=== PATIENT | female | born 1935 | race African-American/Black ===

== ENCOUNTER 2017-01-06 08:33 | Emergency (ER) | payer OTHER, MEDICAID ==
[~2017-01-06] VITALS: Ht 165.1 cm; Wt 90.0 kg
[~2017-01-06 08:33] MED LIST: ALD50 PO; ALLO100T PO; ASPI325T2 PO; FERR-63 PO; FOLI-43 PO; FURO-151 PO; HYDR-2510 PO; LEVO500T15 PO; LOSA50TA20 PO; NEO/5DRO7 OP; NIFE90TA43 PO; NITR0.4T SL; OMEP40CA34 PO; PRO AIR; TERA10CA43 PO
[2017-01-06 10:00] LABS: CLARITY URINE CLEAR (CLEAR); COLOR URINE YELLOW (YELLOW); GLUCOSE URINE NEGATIVE (NEGATIVE); KETONES URINE NEGATIVE (NEGATIVE); LEUKOCYTE ESTERASE URINE 1+ (NEGATIVE); NITRITE URINE NEGATIVE (NEGATIVE); OCCULT BLOOD URINE NEGATIVE (NEGATIVE); PROTEIN URINE NEGATIVE (NEGATIVE); SPECIFIC GRAVITY URINE 1.012 (1.005-1.030); UROBILINOGEN URINE 0.2 E.U./dL (0.2-1.0)
[2017-01-06 10:05] LABS: BASOPHILS % 0.3 % (0.0-2.0); EOSINOPHILS % 0.3 % (0.0-5.0); HEMATOCRIT. 27.9 % (36.0-48.0); HEMOGLOBIN. 9.1 g/dL (12.0-16.0); MEAN CORPUSCULAR HEMOGLOBIN 28.8 pg (28.0-32.0); MEAN CORPUSCULAR HGB CONC 32.7 g/dL (31.0-37.0); MEAN CORPUSCULAR VOLUME 88.1 fL (81.0-99.0); MONOCYTES % 6.2 % (2.0-8.0); NEUTROPHILS % 83.2 % (40.0-76.0); PLATELET 246 x1000/uL (130-400); RED BLOOD CELL COUNT 3.16 mill/uL (4.2-5.4); RED CELL DISTRIBUTION WIDTH 15.2 % (11.6-14.6); WHITE BLOOD COUNT 12.9 x1000/uL (4.5-11.0)
[2017-01-06 10:15] LABS: PROTHROMBIN TIME 10.7 sec
[2017-01-06 10:18] LABS: ALANINE AMINOTRANSFERASE 16 IU/L (13-61); ANION GAP 13; CALCIUM 8.9 mg/dL (8.5-10.1); CARBON DIOXIDE 25 mEq/L (21-32); CHLORIDE 106 mEq/L (98-107); INDEX HEMOLYSI 1 (1-3); INDEX ICTERIC 1 (1-4); INDEX LIPEMIC 1 (1-3); LIPASE 224 IU/L (73-393); UREA NITROGEN BLOOD 55 mg/dL (7-21); eGFR 31 mL/min (>60)
[2017-01-06 10:22] LABS: NT PRO B-TYPE NATRIURETIC PEP 183 pg/mL (5-125)
[2017-01-06 10:41] LABS: BACTERIA URINE 1+; RBC URINE 0-2 /hpf (0-2); SQUAMOUS EPITHELIAL CELL URINE 1+ /lpf (RARE/1+)
[2017-01-06 10:43] LABS: TRICHOMONAS URINE RARE
[2017-01-06] MEDS ORDERED: SODIUM CHLORIDE 0.9% 1,000 ML IV ONE (11:01)
[2017-01-06 14:38] VITALS: BP 148/64
== END 2017-01-06 14:41 | disposition home or self-care (01) ==
LOC: ER 08:38
DX: N39.0 Urinary tract infection, site not specified (principal); A59.9 Trichomoniasis, unspecified; M79.605 Pain in left leg; M79.604 Pain in right leg; M19.90 Unspecified osteoarthritis, unspecified site; J44.9 Chronic obstructive pulmonary disease, unspecified; I10 Essential (primary) hypertension; M10.9 Gout, unspecified; Z79.82 Long term (current) use of aspirin; Z79.899 Other long term (current) drug therapy; Z90.710 Acquired absence of both cervix and uterus
CPT/HCPCS: 36415; 73630; 80053; 81001; 83690; 83880; 85025; 85610; 93970; 96360; 99285; J7030

== ENCOUNTER 2017-10-04 21:32 | Emergency (ER) | payer OTHER, MEDICAID ==
[~2017-10-04] VITALS: Ht 154.9 cm; Wt 113.0 kg
[~2017-10-04 21:32] MED LIST changes: +ASPI-986 PO; -ASPI325T2 PO; -LEVO500T15 PO; +LEVO500T2 PO; +TERA10CA4 PO; -TERA10CA43 PO
[2017-10-04] MEDS ORDERED: ACYCLOVIR 400 MG TABLET PO ONE (23:15)
[2017-10-04] MEDS ORDERED: DIPHENHYDRAMINE 50MG CAPSULE PO ONE (23:15)
[2017-10-05 01:18] VITALS: BP 161/69
== END 2017-10-05 01:17 | disposition home or self-care (01) ==
LOC: ER 22:31
DX: B02.9 Zoster without complications (principal); I11.9 Hypertensive heart disease without heart failure; J44.9 Chronic obstructive pulmonary disease, unspecified; Z79.82 Long term (current) use of aspirin
CPT/HCPCS: 99283; Q0163

== ENCOUNTER 2019-07-08 22:37 | Emergency (ER) | payer OTHER, MEDICAID ==
[~2019-07-08] VITALS: Ht 162.6 cm; Wt 114.0 kg
[~2019-07-08 22:37] MED LIST changes: +BUME2TAB7 PO; -LOSA50TA20 PO; +LOSA50TA41 PO; +MULT1TAB63 PO; -PRO AIR
[2019-07-09] MEDS ORDERED: MINERAL OIL ENEMA 133ML PR ONE (01:00)
[2019-07-09 01:09] LABS: BASOPHILS % 0.6 % (0.0-2.0); EOSINOPHILS % 2.4 % (0.0-5.0); HEMATOCRIT. 27.2 % (36.0-48.0); HEMOGLOBIN. 8.8 g/dL (12.0-16.0); LYMPHOCYTES % 18.2 % (20.0-50.0); MEAN CORPUSCULAR HEMOGLOBIN 27.4 pg (28.0-32.0); MEAN CORPUSCULAR VOLUME 84.9 fL (81.0-99.0); MEAN PLATELET VOLUME 7.9 fl (7.4-10.4); MONOCYTES % 6.4 % (2.0-8.0); NEUTROPHILS % 72.4 % (40.0-76.0); PLATELET 272 x1000/uL (130-400); RED BLOOD CELL COUNT 3.21 mill/uL (4.2-5.4); RED CELL DISTRIBUTION WIDTH 19.5 % (11.6-14.6)
[2019-07-09 01:10] LABS: CHLORIDE 112 mEq/L (98-107)
[2019-07-09 05:00] VITALS: BP 146/88
== END 2019-07-09 05:00 | disposition home or self-care (01) ==
LOC: ER 22:37
DX: S80.922A Unspecified superficial injury of left lower leg, initial encounter (principal); K59.00 Constipation, unspecified; L92.9 Granulomatous disorder of the skin and subcutaneous tissue, unspecified; J44.9 Chronic obstructive pulmonary disease, unspecified; I11.0 Hypertensive heart disease with heart failure; I50.9 Heart failure, unspecified; Z79.82 Long term (current) use of aspirin; Z79.899 Other long term (current) drug therapy; X58.XXXA Exposure to other specified factors, initial encounter; Y93.89 Activity, other specified; Y92.89 Other specified places as the place of occurrence of the external cause; Y99.8 Other external cause status
CPT/HCPCS: 36415; 99283

== ENCOUNTER 2020-08-24 18:47 | Emergency (ER) | payer MEDICAID, OTHER ==
[~2020-08-24] VITALS: Ht 167.6 cm; Wt 100.0 kg
[~2020-08-24 18:47] MED LIST changes: +ALBU18HF2 IH; +ALBU90AE INH; -ASPI-986 PO; -BUME2TAB7 PO; +DOCU-138 MT; -FERR-63 PO; +FERR325T23 MT; +FLUT9.9S BOTHNSTRLS; -FOLI-43 PO; -FURO-151 PO; -HYDR-2510 PO; -LOSA50TA41 PO; -MULT1TAB63 PO; -NITR0.4T SL; +OMEP40CA12 MT; +OMEP40CA12 PO; -OMEP40CA34 PO; +P20 PO; +POLY17PO3 MT; +TOPUD PO
[2020-08-24 18:52] VITALS: BP 171/60
== END 2020-08-24 20:39 | disposition home or self-care (01) ==
LOC: ER 18:47
DX: R04.0 Epistaxis (principal); I11.0 Hypertensive heart disease with heart failure; I50.9 Heart failure, unspecified; J44.9 Chronic obstructive pulmonary disease, unspecified; Z79.899 Other long term (current) drug therapy; Z79.51 Long term (current) use of inhaled steroids
CPT/HCPCS: 99283

== ENCOUNTER 2020-12-10 00:12 | Emergency (ER) | payer OTHER ==
[~2020-12-10] VITALS: Ht 162.6 cm; Wt 122.0 kg
[2020-12-10 01:09] LABS: BASOPHILS % 0.3 % (0.0-2.0); EOSINOPHILS % 0.4 % (0.0-5.0); HEMATOCRIT. 26.5 % (36.0-48.0); HEMOGLOBIN. 8.7 g/dL (12.0-16.0); MEAN CORPUSCULAR HEMOGLOBIN 28.5 pg (28.0-32.0); MEAN CORPUSCULAR VOLUME 86.5 fL (81.0-99.0); MEAN PLATELET VOLUME 8.9 fl (7.4-10.4); MONOCYTES % 8.1 % (2.0-8.0); NEUTROPHILS % 78.2 % (40.0-76.0); PLATELET 375 x1000/uL (130-400); RED BLOOD CELL COUNT 3.06 mill/uL (4.2-5.4); RED CELL DISTRIBUTION WIDTH 17.3 % (11.6-14.6)
[2020-12-10 01:30] LABS: CHLORIDE 110 mEq/L (98-107)
[2020-12-10] MEDS ORDERED: ACETAMINOPHEN 325MG TABLET PO ONE (02:30)
[2020-12-10 02:33] LABS: CLARITY URINE CLOUDY (CLEAR); COLOR URINE YELLOW (YELLOW); KETONES URINE NEGATIVE (NEGATIVE); LEUKOCYTE ESTERASE URINE 1+ (NEGATIVE); NITRITE URINE POSITIVE (NEGATIVE); OCCULT BLOOD URINE 1+ (NEGATIVE); PROTEIN URINE 2+ (NEGATIVE); SPECIFIC GRAVITY URINE 1.014 (1.005-1.030)
[2020-12-10] MEDS ORDERED: CEFTRIAXONE 1 G PREMIX 50 ML IV ONE (03:30)
[2020-12-10 05:40] VITALS: BP 132/68
== END 2020-12-10 06:00 | disposition home or self-care (01) ==
LOC: ER 00:12
DX: N39.0 Urinary tract infection, site not specified (principal); R51.9 Headache, unspecified; R04.0 Epistaxis; I10 Essential (primary) hypertension; J44.1 Chronic obstructive pulmonary disease with (acute) exacerbation; Z79.899 Other long term (current) drug therapy
CPT/HCPCS: 36415; 80053; 81003; 85025; 87077; 87086; 87186; 93005; 96365; 99284; J0696

== ENCOUNTER 2021-07-01 10:38 | Emergency (ER) | payer OTHER ==
[~2021-07-01] VITALS: Ht 157.5 cm; Wt 100.0 kg
[2021-07-01] MEDS ORDERED: ALBUTEROL (0.083%) 2.5MG/3ML NEB HHN STA (11:04)
[2021-07-01] MEDS ORDERED: IPRATROPIUM BROMIDE (0.02%) 0.5MG/2.5ML NEB HHN STA (11:04)
[2021-07-01 11:50] LABS: BASOPHILS % 1.3 % (0.0-2.0); EOSINOPHILS % 2.9 % (0.0-5.0); HEMATOCRIT. 27.4 % (36.0-48.0); LYMPHOCYTES % 19.6 % (20.0-50.0); MEAN CORPUSCULAR HEMOGLOBIN 26.4 pg (28.0-32.0); MEAN CORPUSCULAR VOLUME 80.9 fL (81.0-99.0); MEAN PLATELET VOLUME 9.2 fl (7.4-10.4); MONOCYTES % 6.8 % (2.0-8.0); NEUTROPHILS % 69.4 % (40.0-76.0); PLATELET 270 x1000/uL (130-400); RED BLOOD CELL COUNT 3.39 mill/uL (4.2-5.4); RED CELL DISTRIBUTION WIDTH 19.3 % (11.6-14.6)
[2021-07-01 12:00] LABS: CLARITY URINE CLEAR (CLEAR); COLOR URINE YELLOW (YELLOW); KETONES URINE NEGATIVE (NEGATIVE); LEUKOCYTE ESTERASE URINE NEGATIVE (NEGATIVE); NITRITE URINE NEGATIVE (NEGATIVE); OCCULT BLOOD URINE NEGATIVE (NEGATIVE); PROTEIN URINE 1+ (NEGATIVE); SPECIFIC GRAVITY URINE 1.012 (1.005-1.030); UROBILINOGEN URINE 0.2 E.U./dL (0.2-1.0)
[2021-07-01 12:07] LABS: CHLORIDE 115 mEq/L (98-107)
[2021-07-01] MEDS ORDERED: MORPHINE SULFATE 4 MG/ML CPJ (NOT FOR IM USE) IV ONE (12:15)
[2021-07-01] MEDS ORDERED: MORPHINE SULFATE 2 MG/ML CPJ (NOT FOR IM USE) IV NR (12:30)
[2021-07-01] MEDS ORDERED: LOSARTAN POTASSIUM 50 MG TABLET PO ONE (13:45)
[2021-07-01 15:03] LABS: PROTHROMBIN TIME 10.9 sec (9.6-11.0)
[2021-07-01 15:43] VITALS: BP 163/91
== END 2021-07-01 15:44 | disposition home or self-care (01) ==
LOC: ER 10:38
DX: R10.31 Right lower quadrant pain (principal); I10 Essential (primary) hypertension; Z79.899 Other long term (current) drug therapy
CPT/HCPCS: 36415; 71045; 74176; 80053; 81003; 83690; 83880; 84484; 85025; 85610; 93005; 94640; 96374; 99285; J2270

== ENCOUNTER 2022-01-13 11:48 | Emergency (ER) | payer OTHER, MEDICAID ==
[~2022-01-13] VITALS: Ht 172.7 cm; Wt 92.0 kg
[~2022-01-13 11:48] MED LIST changes: -OMEP40CA12 MT; -OMEP40CA12 PO; +OMEP40CA20 MT; +OMEP40CA20 PO
[2022-01-13] MEDS ORDERED: ACETAMINOPHEN 325MG TABLET PO ONE (12:15)
[2022-01-13] MEDS ORDERED: IBUPROFEN 400MG TABLET PO ONE (12:15)
[2022-01-13] MEDS ORDERED: LIDO1ADH23 TP (14:14)
[2022-01-13 15:24] VITALS: BP 139/66
== END 2022-01-13 17:09 | disposition home or self-care (01) ==
LOC: ER 12:02
DX: M25.562 Pain in left knee (principal); M25.561 Pain in right knee; W18.30XA Fall on same level, unspecified, initial encounter; Y93.01 Activity, walking, marching and hiking; Y92.89 Other specified places as the place of occurrence of the external cause; Y99.8 Other external cause status
CPT/HCPCS: 73562; 99284

== ENCOUNTER 2024-06-12 12:41 | Inpatient (IN) | payer OTHER, MEDICAID, MEDICARE ==
[~2024-06-12] VITALS: Ht 165.1 cm; Wt 108.4 kg
[~2024-06-12 12:41] MED LIST changes: +LIDO1ADH23 TP; -NIFE90TA43 PO; +NIFE90TA69 PO
[2024-06-12] MEDS: PANTOPRAZOLE SODIUM 40 MG/VIAL IV STA (13:47)
[2024-06-12 14:46] LABS: BASOPHILS % 0.6 % (0.0-2.0); EOSINOPHILS % 2.4 % (0.0-5.0); HEMATOCRIT. 30.7 % (36.0-48.0); HEMOGLOBIN. 9.8 g/dL (12.0-16.0); LYMPHOCYTES % 25.9 % (20.0-50.0); MEAN CORPUSCULAR HEMOGLOBIN 29.9 pg (28.0-32.0); MEAN CORPUSCULAR HGB CONC 31.9 g/dL (31.0-37.0); MEAN CORPUSCULAR VOLUME 93.7 fL (81.0-99.0); MONOCYTES % 8.5 % (2.0-8.0); NEUTROPHILS % 62.6 % (40.0-76.0); RED BLOOD CELL COUNT 3.28 mill/uL (4.2-5.4); RED CELL DISTRIBUTION WIDTH 15.8 % (11.6-14.6); WHITE BLOOD COUNT 6.3 x1000/uL (4.5-11.0)
[2024-06-12 14:48] LABS: POTASSIUM 4.7 mEq/L (3.5-5.1)
[2024-06-12 14:49] LABS: CALCIUM 9.6 mg/dL (8.7-10.4)
[2024-06-12 14:54] LABS: CREATININE 1.7 mg/dL (0.6-1.0)
[2024-06-12 14:56] LABS: DIFFERENTIAL COMMENT 1
[2024-06-12 14:57] LABS: ADD RBC MORPHOLOGY YES
[2024-06-12 15:03] LABS: PROTHROMBIN TIME 10.8 sec (9.6-11.0)
[2024-06-12] MEDS ORDERED: ONDANSETRON HCL 4MG/2ML INJ IV PRN (16:45)
[2024-06-12] MEDS: DEXT 5%/0.45% NACL 1000ML 1,000 ML IV SCH (16:45)
[2024-06-12] MEDS: PANTOPRAZOLE SODIUM 40 MG/VIAL IV SCH (16:45)
[2024-06-12 18:08] LABS: PLATELET ESTIMATE NORMAL
[2024-06-12 18:09] LABS: ANISOCYTOSIS 1+
[2024-06-12 18:10] LABS: HYPOCHROMASIA 1+; MEAN PLATELET VOLUME 9.7 fl (7.4-10.4); PLATELET 226 x1000/uL (130-400)
[2024-06-12 20:39] LABS: HEMATOCRIT 32.1 % (36.0-48.0); HEMOGLOBIN 10.4 g/dL (12.0-16.0); MEAN CORPUSCULAR HEMOGLOBIN 30.5 pg (28.0-32.0); MEAN CORPUSCULAR HGB CONC 32.2 g/dL (31.0-37.0); MEAN CORPUSCULAR VOLUME 94.6 fL (81.0-99.0); RED CELL DISTRIBUTION WIDTH 15.5 % (11.6-14.6); WHITE BLOOD COUNT 8.5 x1000/uL (4.5-11.0)
[2024-06-12 21:07] LABS: PLATELET 176 x1000/uL (130-400)
[2024-06-12 22:00] VITALS: BP 158/68; PULSE 70; RESP 18; TEMP 37.1408
[2024-06-13] VITALS: BP 158/68; PULSE 70; RESP 18; TEMP 37.11408; O2SAT 98
[2024-06-13 00:29] LABS: BASOPHILS % 0.3 % (0.0-2.0); EOSINOPHILS % 1.7 % (0.0-5.0); HEMATOCRIT. 30.3 % (36.0-48.0); HEMOGLOBIN. 9.7 g/dL (12.0-16.0); LYMPHOCYTES % 23.1 % (20.0-50.0); MEAN CORPUSCULAR HEMOGLOBIN 29.7 pg (28.0-32.0); MEAN CORPUSCULAR VOLUME 92.8 fL (81.0-99.0); MONOCYTES % 8.8 % (2.0-8.0); NEUTROPHILS % 66.1 % (40.0-76.0); PLATELET 200 x1000/uL (130-400); RED BLOOD CELL COUNT 3.26 mill/uL (4.2-5.4); RED CELL DISTRIBUTION WIDTH 15.6 % (11.6-14.6); WHITE BLOOD COUNT 6.2 x1000/uL (4.5-11.0)
[2024-06-13 04:00] VITALS: BP 132/43; PULSE 69; RESP 19; TEMP 36.61404; O2SAT 100
[2024-06-13 05:45] LABS: CARBON DIOXIDE 25 mEq/L (21-32); CHLORIDE 112 mEq/L (98-107); POTASSIUM 3.9 mEq/L (3.5-5.1); SODIUM 145 mEq/L (136-145)
[2024-06-13 05:46] LABS: CALCIUM 9.4 mg/dL (8.7-10.4)
[2024-06-13 05:50] LABS: CREATININE 1.6 mg/dL (0.6-1.0); IRON 45 ug/dL (50-170)
[2024-06-13 05:51] LABS: GLUCOSE 82 mg/dL (70-105); UREA NITROGEN BLOOD 49 mg/dL (9-23)
[2024-06-13 05:53] LABS: TOTAL IRON BINDING CAPACITY 287 ug/dl (250-425)
[2024-06-13 05:58] LABS: FOLIC ACID (FOLATE) SERUM 7.62 ng/mL (>5.38); VITAMIN B12 SERUM 549 pg/mL (211-911)
[2024-06-13 06:44] LABS: BASOPHILS % 0.5 % (0.0-2.0); EOSINOPHILS % 1.9 % (0.0-5.0); HEMATOCRIT. 28.4 % (36.0-48.0); HEMOGLOBIN. 9.2 g/dL (12.0-16.0); LYMPHOCYTES % 22.4 % (20.0-50.0); MEAN CORPUSCULAR HGB CONC 32.4 g/dL (31.0-37.0); MEAN CORPUSCULAR VOLUME 92.7 fL (81.0-99.0); MEAN PLATELET VOLUME 9.6 fl (7.4-10.4); MONOCYTES % 10.1 % (2.0-8.0); NEUTROPHILS % 65.1 % (40.0-76.0); PLATELET 198 x1000/uL (130-400); RED BLOOD CELL COUNT 3.06 mill/uL (4.2-5.4); RED CELL DISTRIBUTION WIDTH 15.6 % (11.6-14.6); WHITE BLOOD COUNT 5.9 x1000/uL (4.5-11.0)
[2024-06-13 08:00] VITALS: BP 136/70; PULSE 67; RESP 18; RESP 19; TEMP 36.44736; O2SAT 98; O2SAT 99
[2024-06-13 12:00] VITALS: BP 158/56; PULSE 69; RESP 15; TEMP 36.05844; O2SAT 99
[2024-06-13 12:19] LABS: HEMATOCRIT 30.4 % (36.0-48.0); HEMOGLOBIN 9.7 g/dL (12.0-16.0); MEAN CORPUSCULAR HEMOGLOBIN 29.6 pg (28.0-32.0); MEAN CORPUSCULAR VOLUME 92.6 fL (81.0-99.0); PLATELET 205 x1000/uL (130-400); RED BLOOD CELL COUNT 3.28 mill/uL (4.2-5.4); RED CELL DISTRIBUTION WIDTH 15.3 % (11.6-14.6); WHITE BLOOD COUNT 5.1 x1000/uL (4.5-11.0)
[2024-06-13 16:00] VITALS: BP 163/60; PULSE 70; RESP 16; TEMP 36.114; O2SAT 100
[2024-06-13 16:30] LABS: BASOPHILS % 0.4 % (0.0-2.0); EOSINOPHILS % 2.8 % (0.0-5.0); HEMATOCRIT. 28.4 % (36.0-48.0); HEMOGLOBIN. 9.2 g/dL (12.0-16.0); LYMPHOCYTES % 23.5 % (20.0-50.0); MEAN CORPUSCULAR HEMOGLOBIN 30.3 pg (28.0-32.0); MEAN CORPUSCULAR HGB CONC 32.5 g/dL (31.0-37.0); MEAN CORPUSCULAR VOLUME 93.4 fL (81.0-99.0); MEAN PLATELET VOLUME 9.5 fl (7.4-10.4); MONOCYTES % 9.3 % (2.0-8.0); PLATELET 199 x1000/uL (130-400); RED BLOOD CELL COUNT 3.04 mill/uL (4.2-5.4); RED CELL DISTRIBUTION WIDTH 15.5 % (11.6-14.6); WHITE BLOOD COUNT 5.5 x1000/uL (4.5-11.0)
[2024-06-13 20:00] VITALS: BP 155/57; PULSE 82; RESP 20; O2SAT 95
[2024-06-13] MEDS: ACETAMINOPHEN 325MG TABLET PO PRN (23:35)
[2024-06-14] VITALS: BP 155/56; PULSE 64; RESP 20; TEMP 36.78072
[2024-06-14 04:00] VITALS: BP 128/56; PULSE 62; RESP 20; TEMP 36.33624; O2SAT 100
[2024-06-14 06:25] LABS: BASOPHILS % 0.6 % (0.0-2.0); EOSINOPHILS % 3.4 % (0.0-5.0); HEMOGLOBIN. 9.1 g/dL (12.0-16.0); LYMPHOCYTES % 27.5 % (20.0-50.0); MEAN CORPUSCULAR HEMOGLOBIN 30.1 pg (28.0-32.0); MEAN CORPUSCULAR HGB CONC 32.4 g/dL (31.0-37.0); MEAN PLATELET VOLUME 9.5 fl (7.4-10.4); MONOCYTES % 11.7 % (2.0-8.0); NEUTROPHILS % 56.8 % (40.0-76.0); PLATELET 191 x1000/uL (130-400); RED BLOOD CELL COUNT 3.02 mill/uL (4.2-5.4); RED CELL DISTRIBUTION WIDTH 15.4 % (11.6-14.6); WHITE BLOOD COUNT 5.5 x1000/uL (4.5-11.0)
[2024-06-14 06:29] LABS: POTASSIUM 3.9 mEq/L (3.5-5.1)
[2024-06-14 06:30] LABS: CALCIUM 8.9 mg/dL (8.7-10.4)
[2024-06-14 06:35] LABS: CREATININE 1.5 mg/dL (0.6-1.0)
[2024-06-14 08:00] VITALS: BP 177/84; PULSE 83; RESP 17; TEMP 36.50292; O2SAT 96
[2024-06-14] MEDS: HYDRALAZINE 20MG/ML VIAL IV PRN (08:43)
[2024-06-14 12:00] VITALS: BP 143/61; PULSE 70; RESP 22; TEMP 36.05844; O2SAT 99
[2024-06-14 16:00] VITALS: BP 158/58; PULSE 77; RESP 15; TEMP 36.33624; O2SAT 98
[2024-06-14 16:49] VITALS: BP 139/78; PULSE 69; TEMP 97.3; O2SAT 98
== END 2024-06-14 17:42 | disposition home or self-care (01) | DRG 378 ==
LOC: ER 12:53 → EDBEDREQ 15:11 → 5WST 18:48 → 7EST 22:24
PROVIDERS: ADMIT Internal Medicine; ATTEND Internal Medicine
DX: K57.91 Diverticulosis of intestine, part unspecified, without perforation or abscess with bleeding (principal); I13.0 Hypertensive heart and chronic kidney disease with heart failure and stage 1 through stage 4 chronic kidney disease, or unspecified chronic kidney disease; K92.1 Melena; K64.8 Other hemorrhoids; K44.9 Diaphragmatic hernia without obstruction or gangrene; N18.9 Chronic kidney disease, unspecified; I50.9 Heart failure, unspecified; J44.9 Chronic obstructive pulmonary disease, unspecified; K59.00 Constipation, unspecified; D50.9 Iron deficiency anemia, unspecified; Z90.710 Acquired absence of both cervix and uterus; M19.90 Unspecified osteoarthritis, unspecified site
CPT/HCPCS: 36415; 74176; 80048; 82270; 82607; 82728; 82746; 83540; 83550; 85025; 85027; 85044; 86850; 86900; 99291; C1893; J0360; J2470